=== PATIENT | male | born 1985 | race Caucasian/White ===

== ENCOUNTER 2024-04-19 20:25 | Emergency (ER) | payer OTHER, SELFPAY ==
--- NOTE | ~2024-04-19 | CT_ITS ---
EXAMINATION: CT ANGIOGRAM HEAD CT ANGIOGRAM NECK CLINICAL INFORMATION: Left-sided weakness/numbness. COMPARISON: None available. TECHNIQUE: Initial noncontrast ride mechanic imaging of the head and neck was performed. Noncontrast head CT was also performed. Test bolus sequences followed by intravenous administration 75 mL of Omnipaque 350. Helical imaging was performed in the axial plane from the aortic arch to the skull vertex. Delayed postcontrast 2419 imaging of the head was also performed. The data was processed at the surgical technologist's workstation for generation of MIP sequences. Angled MIPs and volume rendered reformatted images were also generated at an offline 3D workstation. Stenoses are assessed in accordance with NASCET criteria unless otherwise indicated. This CT examination was performed using dose optimization techniques as appropriate, variously including the following: *Automated exposure control. *Adjustment of mA and/or kV according to patient size (this includes techniques or standardized protocols for targeted exams where dose is matched to indication/reason for exam; i.e. extremities or head). *Use of iterative reconstruction technique. DLP: 2419 mGy-cm FINDINGS: CT Head: There is no evidence of acute intracranial hemorrhage or edematous territorial infarction. Asif-white matter differentiation is preserved. There is no abnormal attenuation within the brain parenchyma. The ventricles are normal in morphology and size. No evidence for obstructive hydrocephalus. No abnormal mass effect or midline shift. No extra-axial fluid collections. No pathologic intra-axial enhancement or regional oligemia. No acute soft tissue or osseous abnormalities. Mild mucosal thickening of the paranasal sinuses. Mild leftward nasal septal deviation anteriorly and rightward nasal septal deviation posteriorly. The mastoid air cells and middle ear cavities are clear. CT Neck: The thyroid gland and remaining cervical soft tissues are within normal limits. Mild multilevel degenerative spondyloarthropathy of the cervical spine CT Upper Chest: The visualized lung apices and upper mediastinum are within normal limits. Neck CTA: Aortic Arch: Normal contour and caliber. Classic 3 vessel branching pattern of the aortic arch. Great Vessel Origins: No significant stenosis of the branch origins. Right Common Carotid Artery: No focal stenosis or occlusion. Cervical Right Internal Carotid Artery: Normal opacification without focal stenosis or occlusion. Left Common Carotid Artery: No focal stenosis or occlusion. Cervical Left Internal Carotid Artery: Normal opacification without focal stenosis or occlusion. Cervical Right Vertebral Artery: No focal stenosis or occlusion. Cervical Left Vertebral Artery: Mildly dominant. No focal stenosis or occlusion. Brain CTA: Intracranial Internal Carotid Arteries: No focal stenosis or occlusion. Right Anterior Cerebral Artery: Normal A1 segment. Normal opacification of the distal CHLOE segments. Left Anterior Cerebral Artery: Normal A1 segment. Normal opacification of the distal CHLOE segments. Anterior Communicating Artery: Normal. Right Middle Cerebral Artery: Normal M1 segment of the MCA without focal stenosis or occlusion. Normal arborization of the distal segments. Left Middle Cerebral Artery: Normal M1 segment of the MCA without focal stenosis or occlusion. Normal arborization of the distal segments. Right Vertebral Artery: Normal V4 segment. Normal opacification of the proximal segments of the posterior inferior cerebellar artery. Left Vertebral Artery: Normal V4 segment. Normal opacification of the proximal segments of the posterior inferior cerebellar artery. Basilar Artery: Normal without focal stenosis or occlusion. Normal appearance of the proximal superior cerebellar arteries. Right Posterior Cerebral Artery: Normal P1 segment. Normal opacification of the distal LOADER TECHNICIAN segments. Left Posterior Cerebral Artery: Normal P1 segment. Normal opacification of the distal LOADER TECHNICIAN segments. Normal opacification of the superior sagittal, straight, transverse, and sigmoid sinuses. CT/CT angio head neck IMPRESSION: 1. No evidence of acute intracranial hemorrhage or edematous territorial infarction. 2. CTA of the head and neck without proximal occlusion or flow-limiting stenosis. Electronically signed by: Alex Nuno DO 04/20/2024 04:34 AM EST
--- NOTE | ~2024-04-19 | US_ITS ---
EXAMINATION: US TRIPLEX LOWER EXTREMITY, LEFT CLINICAL INFORMATION: Knee pain COMPARISON: None available. TECHNIQUE: Color-flow triplex imaging with spectral analysis and compression Doppler were performed on the left lower extremity. FINDINGS: Respiratory variation, normal compression and augmented flow are noted throughout the left lower extremity. The visualized common femoral vein, superficial femoral vein, profunda femoral vein, popliteal vein and midcalf peroneal and posterior tibial venous segments show no evidence of deep venous thrombosis. There is no Brown's cyst. US/US venous duplex LE LT IMPRESSION: No evidence of deep venous thrombosis involving the left lower extremity. Electronically signed by: Guanaco Birmingham MD 04/19/2024 10:29 PM TERESA
[2024-04-19 20:48] VITALS: BP 131/87; PULSE 98; RESP 20; TEMP 37.1; O2SAT 97; BMI 27.1
--- NOTE | 2024-04-19 20:52 | ED_ITS ---
HPI - General Adult General Chief complaint: General Medical Stated complaint: left side hand tingle, numb,cramped, vein surg Time Seen by Provider: 04/19/24 22:23 Source: patient Mode of arrival: ambulatory Limitations: no limitations History of Present Illness ED Provider: TAWANA FERRIS narrative: 38 yo male with PMH of varicose veins who comes in with c/o sudden onset of tingling and pain in LLE that traveled up with sharp pain and tingling to abdomen on L side then his L arm stopped working and looked like a claw - he reports this lasted 6 hours. His boss told him that he could have a blood clot so he came to the ED. On arrival to the ED his symptoms are gone. No recent trauma, neck injury or manipulation, no n/v/d. He states this has never happened before. complaint: L sided tingling/pain/weakness Onset (ago): hour(s) (330pm) Location: abdomen, left, upper extremity and lower extremity Radiation: non-radiation Severity: moderate Quality: stabbing and aching Pain Consistency: now resolved Relieving factors: none Exacerbating factors: none Associated symptoms: weakness (tingling) Treatments prior to arrival: none Related Data Allergies Allergy/AdvReac Type Severity Reaction Status Date / Time No Known Allergies Allergy Mild NONE Unverified 04/19/24 20:51 Review of Systems 2 Review of Systems: Constitutional : No Fever, No Chills, No Fatigue ENT/Mouth : No sore throat, No Rhinorrhea Eyes: No Eye Pain, No Swelling, No Redness Cardiovascular : No Chest Pain, No SOB, No Dyspnea on Exertion Respiratory : No Cough, No Sputum Gastrointestinal : No Nausea, No Vomiting, No Diarrhea, No abdominal Pain Genitourinary : No Dysuria, No Urinary Frequency, No Hematuria, Musculoskeletal : No joint pain, No Myalgias, No Joint Swelling, pos leg pain Skin : No Skin Lesions, No rash Neuro : pos Weakness, pos Numbness, No Dizziness, no Headache All other systems reviewed and are negative [facility] Past Medical History Attestation statement: The following information was validated with the patient. Source: old records reviewed Medical History Varicose vein of leg Social History Social History (Updated 04/19/24 @ 23:45 by Ana Luisa Romero DO) Patient Tobacco Use Status: Current everyday Tobacco user Smoked in Last 30 Days: Yes Use of substances other than those prescribed or required for medical reasons: No Advance Directives: No Advance Directives Information Provided: Yes Physical Exam ED Vital Signs: Vital Signs - 24 hr 04/19/24 20:48 04/19/24 23:08 Temperature 98.7 F 98.2 F Pulse Rate 98 Respiratory Rate 20 20 Blood Pressure 131/87 130/86 Pulse Oximetry 97 100 Oxygen Delivery Method Room Air Room Air BMI result Body Mass Index 27.1 Appearance: Alert. Oriented X3. No acute distress. Eyes: Pupils equal, round and reactive to light. ENT: Pharynx normal. Neck: Normal inspection. Neck supple. CVS: Normal heart rate and rhythm. Pulses normal. Respiratory: No respiratory distress. Breath sounds normal. Abdomen: Soft and nontender. Skin: Skin warm and dry. Normal skin color. Normal skin turgor. Extremities: No lower extremity edema. No calf ttp L thigh varicose veins but not inflammed Neuro: Oriented X 3. No motor deficit. No sensory deficit. NIH Stroke Scale Internal: Initial- Upon Arrival Level of Consciousness: Alert Level of Consciousness Questions: Answers both questions correctly Level of Consciousness Commands: Performs both tasks correctly Best Gaze: Normal Visual: No visual loss Facial Palsy: Normal Motor Arm (Right): No drift Motor Arm (Left): No drift Motor Leg (Right): No drift Motor Leg (Left): No drift Limb Ataxia: Absent Sensory: Normal Best Language: No aphasia Dysarthia: Normal Extinction and Inattention: No abnormality Score: 0 Course Course Course Narrative: RME, this is a rapid medical exam performed by Pancho Barksdale please refer to primary provider for complete H&P- 38-year-old male presents for evaluation of left-sided numbness and tingling in. This started around 3:15 p.m. today. He describes a pins and needle sensation, denies any weakness. These symptoms resolved. He continues to have left leg pain. He reports a history of ?vein surgery for veins. ? This was done in [place] in August of 2022. Denies any known history of DVT. The lower extremities warm, dry, well perfused. Plan for ultrasound of the left lower extremity to rule out DVT and also get labs. Reevaluation(s) Reevaluation #1: signed out to Dr. Miguel pending CTA result Medications Administered Discontinued Medications Generic Name Dose Route Start Last Admin Trade Name Yeni PRN Reason Stop Dose Admin Iohexol 75 ml 04/19/24 23:42 04/19/24 23:43 Iohexol 350 Mg/Ml 100 Ml Infus..Btl IV 04/19/24 23:43 75 ml ONCE ONE Administration Medical Decision Making Medical Decision Making [facility] Narrative: 38 yo male with PMH of varicose veins tell a history of L sided weakness/numbness/pain at 330pm it lasted hours and has resolved no headache at that time no risk factors for stroke or recent traum or manipulation to the neck at this time labs, EKG, CTA head and neck, DVT study negative - seems unusual for TIA/stroke/dissection with such a drastic story lasting 6 hours then now completely resolved 6 hours to have what would be a LVO but now has no symptoms that seems like such a drastic change after 6 hours of dense symptoms. Differential Diagnosis Differential Diagnoses: The differential diagnosis associated with the presentation includes lyte abnormality, TIA, dissection of neck Admission/Observation Consideration of admission/observation: Escalation of care including admission/observation considered Lab Data [facility] Lab Attestation statement: I reviewed the patient's lab results. 04/19/24 20:58 04/19/24 20:58 Labs: Lab Results 04/19/24 Range/Units 20:58 WBC 6.9 (4.8-10.8) X10*3/uL RBC 4.47 L (4.60-5.80) X10*6/uL Hgb 12.6 L (14.0-18.0) g/dl Hct 37.1 L (42.0-52.0) % MCV 83.0 (80.0-98.0) fL MCH 28.2 (27.0-33.0) pg MCHC 34.0 (31.0-36.0) g/dl RDW 13.2 (11.0-16.0) % Plt Count 246 (160-400) X10*3/uL MPV 8.8 L (9.4-12.4) fL Immature Gran % (Auto) 0.3 (0.0-0.4) % Neut % (Auto) 54.1 (45-73) % Lymph % (Auto) 31.7 (20-40) % [place] % (Auto) 12.4 H (2-11) % Eos % (Auto) 0.9 (0-4) % Baso % (Auto) 0.6 (0-2) % Lymph # (Auto) 2.2 (1.2-4.9) X10*3/uL [place] # (Auto) 0.9 (0.1-1.2) X10*3/uL Eos # (Auto) 0.1 (0.0-0.4) X10*3/uL Baso # (Auto) 0.0 (0.0-0.2) X10*3/uL Abs Immat Gran (auto) 0.02 (0.00-0.03) X10*3/uL Absolute Neuts (auto) 3.8 (2.0-8.3) x10*3/uL Absolute Nucleated RBC 0.000 (0.0-0.012) X10*3/uL Nucleated RBC % (auto) 0.0 (0.0-0.2) /100WBC PT 12.7 H (10.9-12.4) SEC INR 1.1 (0.9-1.1) Sodium 141 (135-145) mmol/L Potassium 3.5 (3.3-5.1) mmol/L Chloride 108 (96-108) mmol/L Carbon Dioxide 25 (22-29) mmol/L Anion Gap 12 (12-20) BUN 8 L (9-16) mg/dL Creatinine 0.84 (0.5-1.4) mg/dL Estim Creat Clear Calc 111.4 Estimated GFR > 60 Random Glucose 109 (60-115) mg/dL Calcium 8.6 (8.4-10.2) mg/dL Magnesium 2.1 (1.6-2.6) mg/dL Total Bilirubin 0.5 (0.0-1.0) mg/dL AST 23 (5-37) U/L ALT 15 (0-40) U/L Alkaline Phosphatase 69 (39-117) U/L Total Protein 7.0 (6.5-8.0) g/dL Albumin 4.0 (3.5-5.0) g/dL Lipase 17 (8-78) U/L Independent Interpretation I performed an independent interpretation of an: EKG, Ultrasound (no DVT) and CT Scan Interpretation: Rate: 88 Rhythm: NSR [place]: normal Normal P waves. Normal DYLLAN. Normal QRS complex. ST T wave : inverted t waves V1, no MAURICIO qTC: 428 prior studies: no acute ischemia The study has been interpreted contemporaneously by me. . Radiology Impression Discussion of test interpretation with radiology: I have reviewed the radiologist's reading. External Record Review External record reviewed: Outpatient record Discharge Plan Discharge Clinical Impression: Paresthesia, Weakness Patient Disposition: Still a Patient Instructions: Paresthesia (ED), Weakness (ED) Additional Instructions: labs reassuring did have mild anemia which means very minor drop in blood count your doctor can monitor this in the next couple of weeks increase your dietary iron. study for blood clot in leg was negative EKG of heart was normal Print Language: Greenlandic
[2024-04-19 21:03] LABS: MANUAL DIFF FLAG NO
[2024-04-19 21:04] LABS: Basophils Percent Auto 0.6 % (0-2); Eosinophils Absolute Auto 0.1 X10*3/uL (0.0-0.4); Eosinophils Percent Auto 0.9 % (0-4); Hematocrit 37.1 % (42.0-52.0); Hemoglobin 12.6 g/dl (14.0-18.0); Imm Gran Abs Auto 0.02 X10*3/uL (0.00-0.03); Imm Gran Pct Auto 0.3 % (0.0-0.4); Lymphocytes Absolute Auto 2.2 X10*3/uL (1.2-4.9); Lymphocytes Percent Auto 31.7 % (20-40); Mean Corpuscular Hemoglobin 28.2 pg (27.0-33.0); Mean Platelet Volume 8.8 fL (9.4-12.4); Monocytes Absolute Auto 0.9 X10*3/uL (0.1-1.2); Monocytes Percent Auto 12.4 % (2-11); Neutrophils Absolute Auto 3.8 x10*3/uL (2.0-8.3); Neutrophils Percent Auto 54.1 % (45-73); Platelet Count 246 X10*3/uL (160-400); Red Blood Count 4.47 X10*6/uL (4.60-5.80); Red Cell Distribution Width 13.2 % (11.0-16.0); White Blood Count 6.9 X10*3/uL (4.8-10.8)
[2024-04-19 21:13] LABS: INTERNATIONAL NORM RATIO 1.1 (0.9-1.1); Prothrombin Time 12.7 SEC (10.9-12.4)
[2024-04-19 21:37] LABS: Anion Gap 12 (12-20); Aspartate Amino Transferase 23 U/L (5-37); Bilirubin Total 0.5 mg/dL (0.0-1.0); Blood Urea Nitrogen 8 mg/dL (9-16); Calcium 8.6 mg/dL (8.4-10.2); Carbon Dioxide 25 mmol/L (22-29); Chloride 108 mmol/L (96-108); Creatinine Clr Calc Pharmacy 111.4; Estimated Glomerular Filt Rate > 60; Glucose Random 109 mg/dL (60-115); Lipase 17 U/L (8-78); Magnesium 2.1 mg/dL (1.6-2.6); Potassium 3.5 mmol/L (3.3-5.1); Sodium 141 mmol/L (135-145)
[2024-04-19 21:55] LABS: Alanine Aminotransferase 15 U/L (0-40); Alkaline Phosphatase 69 U/L (39-117)
--- NOTE | 2024-04-19 22:49 | ECG_ITS ---
Test Reason : STROKE SYMPTOMS Blood Pressure : / mmHG Vent. Rate : 088 BPM Atrial Rate : 088 BPM P-R Int : 166 ms QRS Dur : 080 ms QT Int : 354 ms P-R-T Axes : 059 068 015 degrees QTc Int : 428 ms Normal sinus rhythm Normal ECG No previous ECGs available Referred By: Ana Luisa Romero Electronically Signed By:BERNICE RIVERA
[2024-04-19 23:08] VITALS: BP 130/86; RESP 20; TEMP 36.8; O2SAT 100
[2024-04-19] MEDS: iohexoL 350 MG/ML 100 ML INFUS..BTL 75 ML IV (23:43)
[2024-04-20] MEDS: Nicotine Polacrilex 2 MG GUM BUCCAL (02:51)
[2024-04-20 02:53] VITALS: BP 116/87; PULSE 80; RESP 16; TEMP 36.7; O2SAT 99
[2024-04-20 03:27] VITALS: BP 116/87; PULSE 80; RESP 16; TEMP 36.7; O2SAT 99
== END 2024-04-20 03:32 | disposition home or self-care (01) ==
PROVIDERS: Physician Assistant; Emergency Provider Emergency Medicine
DX: R20.2 Paresthesia of skin (principal); R53.1 Weakness; R60.0 Localized edema; R10.2 Pelvic and perineal pain; M79.605 Pain in left leg; M54.2 Cervicalgia; F17.210 Nicotine dependence, cigarettes, uncomplicated
CPT/HCPCS: 36415; 70496; 70498; 80053; 83690; 83735; 85025; 85610; 93005; 93971; 99284; Q9967

== ENCOUNTER → 2024-04-19 22:49 | Outpatient (BNV) | payer OTHER, SELFPAY | PROVIDERS: Emergency Provider Emergency Medicine; Visit Provider Internal Medicine | DX: R20.2 Paresthesia of skin (principal) | CPT/HCPCS: 93010 ==

== ENCOUNTER 2024-10-18 20:52 | Emergency (ER) | payer OTHER, SELFPAY ==
--- NOTE | ~2024-10-18 | US_ITS ---
CLINICAL HISTORY: pain, swelling Venous duplex ultrasound left lower extremity Comparison: None provided Findings: The visualized deep veins are fully compressible with normal Doppler color flow and spectral tracings. No popliteal cyst. IMPRESSION: 1. Negative for left lower extremity deep vein thrombosis. This document has been electronically signed by: Jorge Moreland MD on 10/19/2024 06:57:14
[2024-10-18 20:58] VITALS: BP 146/72; PULSE 99; RESP 20; TEMP 36.4; O2SAT 99; BMI 26.0
[2024-10-18 22:18] VITALS: BP 142/70; PULSE 85; RESP 16; O2SAT 100
[2024-10-19 01:04] VITALS: BP 109/75; PULSE 91; RESP 16; TEMP 37; O2SAT 98
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
[2024-10-19] MEDS: oxyCODONE HCl Immed Release 5 MG TABLET PO (04:00)
--- NOTE | 2024-10-19 04:40 | PC.NURSE ---
Patient medicated with Oxycodone 5 mg PO for 10/10 pain in left leg. Call jurado in patient's reach. Patient awaiting US venous duplex of L LE to be completed.
[2024-10-19 06:12] VITALS: BP 124/85; PULSE 73; RESP 18; TEMP 37.1; O2SAT 98
[2024-10-19 07:36] VITALS: BP 124/85; PULSE 73; RESP 18; TEMP 37.1; O2SAT 98
== END 2024-10-19 07:37 | disposition home or self-care (01) ==
PROVIDERS: Emergency Provider Emergency Medicine
DX: R60.0 Localized edema (principal); M79.672 Pain in left foot; S80.12XA Contusion of left lower leg, initial encounter; S80.11XA Contusion of right lower leg, initial encounter; V03.10XA Pedestrian on foot injured in collision with car, pick-up truck or van in traffic accident, initial encounter; Y93.01 Activity, walking, marching and hiking; Y92.410 Unspecified street and highway as the place of occurrence of the external cause; Y99.9 Unspecified external cause status
CPT/HCPCS: 93971; 99284; 99291

== ENCOUNTER → 2024-10-19 03:51 | Outpatient (BNV) | payer OTHER, SELFPAY | PROVIDERS: Emergency Provider Emergency Medicine; Visit Provider Radiology Diagnostic Radiology | DX: M79.605 Pain in left leg (principal); R22.42 Localized swelling, mass and lump, left lower limb | CPT/HCPCS: 93971 ==